=== PATIENT | male | born 1985 | race American Indian/Alaskan Native ===

== ENCOUNTER 2017-05-22 15:58 | Emergency (ER) | payer SELFPAY ==
[2017-05-22 16:08] VITALS: BP 93/51
[2017-05-22 16:30] LABS: Hematocrit 38.4 % (35.5-45.6); Hemoglobin 13.1 gm/dl (11.8-15.2); Mean Corpuscular HGB Conc 34 % (32-34); Mean Corpuscular Hemoglobin 34 pg (28-32); Mean Corpuscular Volume 99 fl (84-94); Platelet Count 184 K/mm3 (140-440); Red Blood Count 3.86 M/mm3 (3.65-5.03); Red Cell Distribution Width 14.1 % (13.2-15.2); White Blood Count 3.1 K/mm3 (4.5-11.0)
[2017-05-22 16:52] LABS: Alanine Aminotransferase 13 units/L (7-56); Albumin 4.2 g/dL (3.9-5); Albumin/Globulin Ratio 1.4 %; Alkaline Phosphatase 54 units/L (35-129); Anion Gap 17 mmol/L; Blood Urea Nitrogen 9 mg/dL (9-20); Calcium 8.9 mg/dL (8.4-10.2); Carbon Dioxide 26 mmol/L (22-30); Chloride 99.8 mmol/L (98-107); Glucose 97 mg/dL (75-100); Lipase 24 units/L (13-60); Potassium 4.4 mmol/L (3.6-5.0); Sodium 138 mmol/L (137-145); Total Protein 7.3 g/dL (6.3-8.2)
[2017-05-22 17:31] LABS: Basophils % (Manual) 0 % (0.0-1.8); Blastocytes % (Manual) 0 %; Eosinophils % (Manual) 0 % (0.0-4.3)
[2017-05-22 17:33] LABS: Anisocytosis 1+; Diff Status Complete; Poikilocytosis Few
--- NOTE | 2017-05-24 14:38 | ED Elopement Review ---
ED Pt Elopement review - Results review Lab results: Laboratory Tests 05/22/17 05/22/17 16:11 16:11 WBC 3.1 L RBC 3.86 Hgb 13.1 Hct 38.4 MCV 99 H MCH 34 H MCHC 34 RDW 14.1 Plt Count 184 Add Manual Diff Complete Total Counted 100 Seg Neutrophils % A R Specialist Seg Neuts % (Manual) 36.0 L Band Neutrophils % 0 Lymphocytes % (Manual) 50.0 H Reactive Lymphs % (Man) 0 Monocytes % (Manual) 14.0 H Eosinophils % (Manual) 0 Basophils % (Manual) 0 Metamyelocytes % 0 Myelocytes % 0 Promyelocytes % 0 Blast Cells % 0 Nucleated RBC % Not Reportable Seg Neutrophils # Man 1.1 L Band Neutrophils # 0.0 Lymphocytes # (Manual) 1.6 Abs React Lymphs (Man) 0.0 Monocytes # (Manual) 0.4 Eosinophils # (Manual) 0.0 Basophils # (Manual) 0.0 Metamyelocytes # 0.0 Myelocytes # 0.0 Promyelocytes # 0.0 Blast Cells # 0.0 WBC Morphology Not Reportable Hypersegmented Neuts Not Reportable Hyposegmented Neuts Not Reportable Hypogranular Neuts Not Reportable Smudge Cells Not Reportable Toxic Granulation Not Reportable Toxic Vacuolation Not Reportable Dohle Bodies Not Reportable Pelger-Huet Anomaly Not Reportable Vinayak Rods Not Reportable Platelet Estimate Appears normal Clumped Platelets Not Reportable Plt Clumps, EDTA Not Reportable Large Platelets Not Reportable Giant Platelets Not Reportable Platelet Satelliting Not Reportable Plt Morphology Comment Not Reportable RBC Morphology Not Reportable Dimorphic RBCs Not Reportable Polychromasia Not Reportable Hypochromasia Not Reportable Poikilocytosis Few Anisocytosis 1+ Microcytosis Not Reportable Macrocytosis Not Reportable Spherocytes Not Reportable Pappenheimer Bodies Not Reportable Sickle Cells Not Reportable Target Cells Not Reportable Tear Drop Cells Not Reportable Ovalocytes Not Reportable Helmet Cells Not Reportable [place] Bodies Not Reportable [place] Rings Not Reportable [place] Cells Not Reportable Bite Cells Not Reportable Crenated Cell Not Reportable Elliptocytes Not Reportable Acanthocytes (Spur) Not Reportable Rouleaux Not Reportable Hemoglobin C Crystals Not Reportable Schistocytes Not Reportable Malaria parasites Not Reportable Annat Bodies Not Reportable Hem Pathologist Commnt No Sodium 138 Potassium 4.4 Chloride 99.8 Carbon Dioxide 26 Anion Gap 17 BUN 9 Creatinine 0.9 Estimated GFR > 60 BUN/Creatinine Ratio 10.00 Glucose 97 Calcium 8.9 Total Bilirubin 0.40 AST 18 ALT 13 Alkaline Phosphatase 54 Total Protein 7.3 Albumin 4.2 Albumin/Globulin Ratio 1.4 Lipase 24 - Call Back decision Pt Call Back Decision: Pt to F/U with PMD
== END 2017-05-22 20:54 | disposition left against medical advice (07) ==
LOC: ED 15:58
DX: Z53.21 Procedure and treatment not carried out due to patient leaving prior to being seen by health care provider (principal)
CPT/HCPCS: 36415; 80053; 83690; 85007; 85025